=== PATIENT | male | born 1985 | race Caucasian/White ===

== ENCOUNTER 2021-10-29 02:14 | Emergency (ER) | payer OTHER, MEDICAID ==
[~2021-10-29] VITALS: Ht 172.7 cm; Wt 83.9 kg
--- NOTE | 2021-10-29 02:19 | NUR ---
Dr. Ornelas examining patient at [facility].
[2021-10-29 02:20] VITALS: BP 168/100
--- NOTE | 2021-10-29 02:20 | NUR ---
36 YO/M BIBA FROM THE [facility] FOR ALOC, AND LAYING ON THE FLOOR NAKED, YELLING. PT PRESENTS AOX3, GCS 14, EXCESSIVE/RAPID SPEECH, FLIGHT OF IDEAS, PT REPORTS HE HAD A BOWEL MOVEMENT ON HIS CLOTHES WHICH WAS IRRITATING HIM SO HE TOOK OF HIS CLOTHES. PT DENIES SI, THOUGHTS OF HURTING SELF OR OTHERS. DENIES ANY PAIN, DRUG OR ALCOHOL USE. PT CONNECTED TO MONITOR. WILL CONTINUE TO MONITOR. PMH: DENIES ALLERGIES: DENIES
--- NOTE | 2021-10-29 02:20 | NUR ---
Patient placed on bed 7.
[2021-10-29] MEDS: diphenhydrAMINE 50 MG/ML VIAL IM ONE (02:42)
[2021-10-29] MEDS: HALOPERIDOL IM 5 MG/ML VIAL IM ONE (02:43)
[2021-10-29] MEDS: LORazepam 2 MG/ML VIAL IM ONE (02:43)
--- NOTE | 2021-10-29 03:52 | NUR ---
PT APEARS TO BE RESTING W EYES CLOSED IN SUPINE POSITION W HOB ELEVATED. BREATHING EVEN AND UNLABORED, WILL CONTINUE TO MONITOR.
[2021-10-29] MEDS ORDERED: OLAN7.5T1 PO (04:21)
--- NOTE | 2021-10-29 05:52 | NUR ---
pt appears to bed resting w eyes closed in supine position w breathing even and unlabored. pt up for discharge, per kayleigh gooden pt to be discharged once awake, and alert.
--- NOTE | 2021-10-29 07:11 | NUR ---
Pt report given to RUPESH SALCIDO. Transfer of care at this time.
--- NOTE | 2021-10-29 07:18 | NUR ---
RECIEVED REPORT FROM EVARISTO HILL FOR TRANSFER OF CARE.
[2021-10-29 08:16] VITALS: BP 183/94
--- NOTE | 2021-10-29 08:16 | NUR ---
Offered patient his breakfast and says he will eat later. Breakfast tray at bedside.
--- NOTE | 2021-10-29 09:05 | NUR ---
Patient ate some of his breakfast.
--- NOTE | 2021-10-29 10:05 | NUR ---
Patient was road testedand ambuilated well. AAAO x 4
--- NOTE | 2021-10-29 10:15 | NUR ---
Patient discharged with v/s stable. Written and verbal after care instructions given. Patient alert, oriented and verbalized understanding of instructions. Ambulatory with steady gait. All questions addressed prior to discharge. ID band removed. Patient advised to follow up with PMD. Rx of zyprexa given. Opportunity to ask questions provided and answered. HOMELESS PACKET GIVEN. FOOD WAS OFFERED AND PATIENT DECLINED.
--- NOTE | 2021-10-29 10:16 | NUR ---
The patient's care was reviewed and supervised by Elsa Sheldon RN.
[2021-10-30] MEDS ORDERED: ZIPR40CA39 PO (18:55)
== END 2021-10-29 10:15 | disposition home or self-care (01) ==
LOC: MED 02:14
DX: R41.82 Altered mental status, unspecified (principal); F19.10 Other psychoactive substance abuse, uncomplicated; F30.9 Manic episode, unspecified; R55 Syncope and collapse; F20.9 Schizophrenia, unspecified; F17.210 Nicotine dependence, cigarettes, uncomplicated; F12.90 Cannabis use, unspecified, uncomplicated; F15.90 Other stimulant use, unspecified, uncomplicated; Z88.0 Allergy status to penicillin; Z79.899 Other long term (current) drug therapy
CPT/HCPCS: 96372; 99285; J1200; J1630; J2060

== ENCOUNTER 2021-10-30 03:14 | Emergency (ER) | payer OTHER, MEDICAID ==
[~2021-10-30] VITALS: Ht 172.7 cm; Wt 86.2 kg
[~2021-10-30 03:14] MED LIST: OLAN7.5T1 PO
[2021-10-30 03:32] VITALS: BP 196/117
--- NOTE | 2021-10-30 03:48 | NUR ---
PT KATHRYN WRIGHT. TAKEN TO BED 13
[2021-10-30] MEDS ORDERED: diphenhydrAMINE 50 MG/ML VIAL IVP ONE (04:05)
[2021-10-30] MEDS ORDERED: diphenhydrAMINE 50 MG/ML VIAL IM ONE (04:05)
--- NOTE | 2021-10-30 04:18 | NUR ---
PT MOVED TO ER BED 1
--- NOTE | 2021-10-30 04:20 | NUR ---
Assumed care of pt at this time. Pt in 4 point restraints at this time. Charge Nurse aware. Pt very agitated and wrestless. Pt continues to try and get out of restraints and unable to keep still. Pt keeps sitting up and down, talking to self, flight of ideas. Pt on a 5150 hold written by PD. Pt was found unable to walk or stand, unable to have clear conversation and hitting his head on the ground. Pt has abrasion to forehead.
[2021-10-30] MEDS ORDERED: LORazepam 2 MG/ML VIAL IM ONE (05:35)
[2021-10-30] MEDS ORDERED: HALOPERIDOL IM 5 MG/ML VIAL IM ONE (05:35)
[2021-10-30] MEDS ORDERED: ZIPRASIDONE MESYLATE 20 MG/ML VIAL IM ONE (06:35)
[2021-10-30] MEDS ORDERED: WATER STERILE 10 ML MC ONE (06:40)
--- NOTE | 2021-10-30 06:46 | NUR ---
Provided 3 cups of water to pt at this time. Pt then laid down and fell asleep.
--- NOTE | 2021-10-30 07:01 | NUR ---
[place] [employer] OFFICER AT BEDSIDE
--- NOTE | 2021-10-30 07:53 | NUR ---
pt taken to ct, rn accompanied at this time.
--- NOTE | 2021-10-30 08:18 | NUR ---
linens changed, pt cleaned, no void or bm at this time.
--- NOTE | 2021-10-30 08:56 | NUR ---
Patient appears to be resting comfortably in bed. Vital Signs within normal limits. Respirations even and unlabored.
[2021-10-30 09:32] LABS: BASOPHILS % (AUTO) 0.2 % (0.0-2.0); EOSINOPHILS % (AUTO) 0.4 % (0.0-4.0); HEMATOCRIT 35.6 % (36-52); HEMOGLOBIN 12.1 g/dL (12.0-18.0); LYMPHOCYTES % (AUTO) 11.8 % (20.5-51.1); MEAN CORPUSCULAR HEMOGLOBIN 30 pg (27-31); MEAN CORPUSCULAR HGB CONC 34 g/dL (33-37); MONOCYTES # (AUTO) 0.8 K/uL (0.8-1.0); NEUTROPHILS # (AUTO) 6.6 K/uL (1.8-7.7); NEUTROPHILS % (AUTO) 78.6 % (42.2-75.2); PLATELET COUNT (AUTO) 394 K/uL (140-450); RED BLOOD CELL COUNT(AUTO) 4.04 MIL/uL (4.20-6.10); RED CELL DISTRIBUTION WIDTH 15.2 % (11.6-13.7); WHITE BLOOD COUNT (AUTO) 8.4 K/uL (4.8-10.8)
--- NOTE | 2021-10-30 09:41 | NUR ---
pt spoke with telepsych at this time. verbal orders for meds received and poc will continue for inpatient psych.
[2021-10-30] MEDS ORDERED: diphenhydrAMINE 50 MG/ML VIAL IM PRN (10:35)
[2021-10-30] MEDS ORDERED: HALOPERIDOL IM 5 MG/ML VIAL IM PRN (10:35)
[2021-10-30 10:53] LABS: ALBUMIN 2.3 g/dL (3.4-5.0); ANION GAP 12.2 (8-16); ASPARTATE AMINOTRANSFERASE 100 U/L (15-37); CARBON DIOXIDE 25.7 mmol/L (21-32); CHLORIDE 112 mmol/L (98-107); CREATININE 0.6 mg/dL (0.6-1.3); GFR ARICAN-AMERICAN 194 mL/min (>90); GLUCOSE 81 mg/dL (74-106); SALICYLATE 4.3 mg/dL (2.8-20.0); SODIUM SERUM 147 mmol/L (136-145); TOTAL BILIRUBIN 0.3 mg/dL (0.0-1.0); UREA NITROGEN, BLOOD 9 mg/dL (7-18)
[2021-10-30 10:55] LABS: POTASSIUM 2.9 mmol/L (3.5-5.1)
[2021-10-30 12:16] LABS: ACETAMINOPHEN < 0.5 ug/ml (10-30)
--- NOTE | 2021-10-30 12:29 | NUR ---
pt awake and eating at this time, requesting urinal and to call father [phone]
[2021-10-30] MEDS ORDERED: POTASSIUM CHLORIDE 10 MEQ TABER PO ONE ×2 (12:50→13:52)
--- NOTE | 2021-10-30 13:03 | NUR ---
PT MOVED TO ER BED 4, [address]
[2021-10-30 13:49] LABS: BARBITURATE, URINE NEGATIVE ng/ml (NEG <=200); BENZODIAZEPINE, URINE POSITIVE ng/mL (NEG <=200)
[2021-10-30 13:50] LABS: CANNABINOID, URINE POSITIVE ng/mL (NEG <=50); COCAINE, URINE NEGATIVE ng/mL (NEG <=300); OPIATE, URINE NEGATIVE ng/mL (NEG <=2000); PHENCYCLIDINE SCREEN,URINE NEGATIVE ng/mL (NEG <=25)
--- NOTE | 2021-10-30 15:45 | NUR ---
pt eating at this time. high fowlers, calm, awake and sitting quietly
--- NOTE | 2021-10-30 16:00 | NUR ---
pt spoke with father at this time. pt is requesting to speak with psychiatrist as well. Dr Barth [phone]
[2021-10-30 16:24] VITALS: BP 152/95
--- NOTE | 2021-10-30 17:01 | NUR ---
pt speaking with telepsych at this time for 2nd consult.
[2021-10-30] MEDS ORDERED: ZIPR40CA39 PO (18:55)
--- NOTE | 2021-10-30 19:14 | NUR ---
Patient discharged with v/s stable. Written and verbal after care instructions ABOUT HEAD INJURY AND PSYCHOSIS given and explained. Patient alert, oriented and verbalized understanding of instructions. Ambulatory with steady gait. All questions addressed prior to discharge. ID band removed. Patient advised to follow up with PMD. Rx of SENAIT given. Patient educated on indication of medication including possible reaction and side effects. Opportunity to ask questions provided and answered.
--- NOTE | 2021-10-30 19:15 | NUR ---
HOMLESS PACKET AND MENTAL HEALTH PACKET PROVIDED. HOMELESS WAIVER SIGNED. PT REFUSED RIDE AND FOOD
[2021-10-31] MEDS ORDERED: ZIPRASIDONE 40 MG CAP PO SCH (09:00)
[2021-10-31] MEDS ORDERED: ZIPRASIDONE MESYLATE 20 MG/ML VIAL IM ONE (09:00)
== END 2021-10-30 19:14 | disposition home or self-care (01) ==
LOC: MED 03:14
DX: T14.91XA Suicide attempt, initial encounter (principal); F29 Unspecified psychosis not due to a substance or known physiological condition; R41.82 Altered mental status, unspecified; F25.9 Schizoaffective disorder, unspecified; Z59.00 Homelessness unspecified; Z88.0 Allergy status to penicillin; Z79.899 Other long term (current) drug therapy
CPT/HCPCS: 36415; 70450; 80053; 80305; 81002; 85025; 93005; 96372; 99285; G0480; G0482; J1200; J1630; J2060; J3486